=== PATIENT | female | born 2000 | race Caucasian/White ===

== ENCOUNTER 2023-05-16 02:00 | Emergency (ER) | payer OTHER ==
[2023-05-16 02:16] VITALS: BP 112/74; PULSE 90; RESP 18; TEMP 99.4; BMI 25.7
== END 2023-05-16 03:36 | disposition left against medical advice (07) ==
LOC: JER 02:00
DX: R10.9 Unspecified abdominal pain (principal); Z53.21 Procedure and treatment not carried out due to patient leaving prior to being seen by health care provider
CPT/HCPCS: 99281-25